=== PATIENT | female | born 1980 | race Caucasian/White ===

== ENCOUNTER 2021-01-04 14:20 | Emergency (ER) | payer OTHER ==
[~2021-01-04 14:20] MED LIST: COLACE 100MG C100 MG PO; EXPECTORANT200 MG PO; FLONASE 0.05% N16 GM; IBUPROFEN800 MG PO; NORCO 5-325 TA1 EACH PO; PREDNISONE 50 M50 MG PO; ZITHROMAX250 MG PO
[2021-01-04 15:56] LABS: HEMOGLOBIN 13.7 gm/dl (12.3-15.3); RED BLOOD COUNT 4.28 M/UL (4.00-5.10); WHITE BLOOD COUNT 17.7 K/UL (4.5-11.0)
[2021-01-04 16:28] LABS: BUN/CREATININE RATIO 14 (0-10)
[2021-01-04] MEDS ORDERED: OMNICEF 300 MG300 MG PO ×2 (17:40→17:44)
[2021-01-04] MEDS ORDERED: AZITHROMYCIN250 MG PO (17:44)
== END 2021-01-04 18:02 | disposition home or self-care (01) ==
LOC: ER1 14:20
PROVIDERS: Family Medicine
DX: J18.9 Pneumonia, unspecified organism (principal); F17.200 Nicotine dependence, unspecified, uncomplicated; Z88.8 Allergy status to other drugs, medicaments and biological substances; Z20.822 Contact with and (suspected) exposure to COVID-19
CPT/HCPCS: 71045; 80048; 82550; 82553; 83874; 84484; 85025; 85379; 93005; 96374; 99284; J0696; U0002